=== PATIENT | female | born 1995 | race Caucasian/White ===

== ENCOUNTER 2021-05-03 22:03 | Emergency (ER) | payer OTHER, SELFPAY ==
[2021-05-03 22:03] VITALS: BP 144/77; PULSE 89; RESP 16; TEMP 36.2; O2SAT 100; BMI 23.6
[2021-05-03 22:37] LABS: Absolute Lymphocyte Count 2.77 X10^3/uL (0.83-4.51); Absolute Neutrophil Count 10.5 X10^3/uL (2.0-7.7); Basophil# 0.05 X10^3/uL; Basophil% 0.4 % (0-1); Eosinophil# 0.06 X10^3/uL; Eosinophils% 0.4 % (0-5); Hematocrit 39.3 % (37-47); Hemoglobin 13.1 g/dL (12.0-15.0); Lymphocyte # 2.77 X10^3/ul (0.83-4.51); Lymphocyte % 19.5 % (19-41); Mean Corp Hgb Conc 33.3 g/dL (32-36); Mean Corpuscular Volume 86.9 fL (81-99); Mean Platelet Vol. 9.8 fl (6.2-12.0); Monocyte% 5.6 % (0-10); NRBC Flagged by Analyzer 0 % (0-5); Neutrophil # 10.49 X10^3/uL (2.7-7.7); Neutrophil % 73.7 % (47-70); Platelet Count 323 K/mm3 (150-450); RBC Distribution Width CV 11.4 % (11.6-14.6); RBC Distribution Width SD 36.7 fl (35.1-43.9); Red Blood Count 4.52 M/mm3 (4.2-5.4); White Blood Count 14.2 K/mm3 (4.4-11.0)
[2021-05-03] MEDS: 0.9% Normal Saline 1,000 ML 150 ML IV (22:43)
[2021-05-03] MEDS: Ondansetron 4 MG/2 ML Vial IV (22:43)
[2021-05-03] MEDS: Morphine 4 MG/ML Syringe IV (22:43)
--- NOTE | 2021-05-03 22:44 | EX.ED.DYSGE1 ---
HPI History of Present Illness Chief Complaint: Abd Pain Informant: patient Onset/Context/Timing Onset: Today Context: Gradual Onset Current Severity: Moderate Maximum Severity: Moderate Narrative Narrative: Patient presents with abdominal pain, nausea, and vomiting. Patient states that she has felt bloated all day. Around 6:00 this evening she started evolving pain over her lower abdomen. She did have a bowel movement this morning. No difficulty urinating. She has developed chills along with nausea and vomiting this evening. She denies prior abdominal surgeries. PFSH PFSH Medical History no medical history no medical history Home Medications NK 05/03/21 [History Last Taken Unknown] Allergy/AdvReac Type Severity Reaction Status Date / Time No Known Allergies Allergy Verified 05/03/21 22:05 Social History Smoking Status: Never smoker ROS ROS ED Constitutional Constitutional ED: Reports chills Eyes Eyes: Denies blurry vision or change in vision ENT ENT ED: Denies ear pain Cardiovascular Cardiovascular: Denies chest pain or palpitations Respiratory/Chest Respiratory/Chest: Denies cough or dyspnea Gastrointestinal Gastrointestinal: Reports abdominal pain, nausea and vomiting; Denies diarrhea Genitourinary Genitourinary ED: Denies dysuria or hematuria Integumentary Denies rash Neurologic Neurologic: Denies headache(s) or weakness Allergic/Immunologic Allergic/Immunologic ED: Denies urticaria EXAM Physical Exam Const Vital Signs: 05/03/21 22:03 05/04/21 00:03 Temperature 97.2 F L Temperature Source Temporal Pulse Rate 89 Respiratory Rate 16 18 Blood Pressure 144/77 H Blood Pressure Mean 99 Pulse Ox 100 Oxygen Delivery Method Room Air Positive well nourished and well developed General Appearance ED: well developed HEENT Reports moist mucous membranes Eyes PERRL and EOMs intact bilaterally Neck supple Chest Wall inspection of chest normal and palpation of chest normal Resp normal respiratory effort and clear to auscultation bilaterally Cardio regular rate and regular rhythm GI Palpation: soft and tender other (Moderate tenderness of the lower abdomen. No guarding or rebound. Hypoactive but present bowel sounds are noted.) Extremity normal to inspection Neuro oriented x3 Sensorium / Orientation: alert Psych mental status grossly normal Skin no rashes or lesions noted MDM MDM MDM Narrative Medical decision making narrative: Patient given morphine and Zofran for pain. Lab work, urinalysis, CT abdomen pelvis obtained. Lab Data Attestation: I reviewed the patient's lab results. Labs: Laboratory Results - last 24 hr 05/03/21 05/03/21 05/03/21 22:25 22:25 22:25 WBC 14.2 H RBC 4.52 Hgb 13.1 Hct 39.3 MCV 86.9 MCH 29.0 MCHC 33.3 RDW Std Deviation 36.7 RDW Coeff of Maribeth 11.4 L Plt Count 323 MPV 9.8 Immature Gran % (Auto) 0.400 Neut % (Auto) 73.7 H Lymph % (Auto) 19.5 [place] % (Auto) 5.6 Eos % (Auto) 0.4 Baso % (Auto) 0.4 Absolute Neuts (auto) 10.5 H Absolute Lymphs (auto) 2.77 Nucleated RBC % 0 Sodium 137 Potassium 3.6 Chloride 103 Carbon Dioxide 26.0 Anion Gap 8 BUN 9 Creatinine 0.82 Estim Creat Clear Calc 111.51 Est GFR (MDRD) Af Amer 111 Est GFR (MDRD) Non-Af 91 BUN/Creatinine Ratio 11.0 Glucose 115 H Calcium 8.7 Serum , Qual NEGATIVE Urine Color Urine Clarity Urine pH Ur Specific [place] Urine Protein Urine Glucose (UA) Urine Ketones Urine Occult Blood Urine Nitrite Urine Bilirubin Urine Urobilinogen Ur Leukocyte Esterase Urine RBC Urine WBC Ur Squamous Epith Cells Urine Bacteria Urine Mucus 05/03/21 23:50 WBC RBC Hgb Hct MCV MCH MCHC RDW Std Deviation RDW Coeff of Maribeth Plt Count MPV Immature Gran % (Auto) Neut % (Auto) Lymph % (Auto) [place] % (Auto) Eos % (Auto) Baso % (Auto) Absolute Neuts (auto) Absolute Lymphs (auto) Nucleated RBC % Sodium Potassium Chloride Carbon Dioxide Anion Gap BUN Creatinine Estim Creat Clear Calc Est GFR (MDRD) Af Amer Est GFR (MDRD) Non-Af BUN/Creatinine Ratio Glucose Calcium Serum , Qual Urine Color Yellow Urine Clarity Clear Urine pH 6.5 Ur Specific [place] 1.010 Urine Protein Negative Urine Glucose (UA) Normal Urine Ketones 5 H Urine Occult Blood Negative Urine Nitrite Negative Urine Bilirubin Negative Urine Urobilinogen Normal Ur Leukocyte Esterase 25 H Urine RBC 0 SEEN Urine WBC 0-5 SEEN Ur Squamous Epith Cells 0-5 SEEN Urine Bacteria 1+ Urine Mucus 0 SEEN Radiography Diagnostic Testing: Clinical Impression(s) from Imaging Studies Abdomen/Pelvis CT 05/04/21 22:42 IMPRESSION: 3.7 x 3.5 cm cyst in the left ovary. Complex appearing fluid in the pelvis, in the right pericolic gutter extending to Morison''s pouch.. Consider recent ruptured ovarian cyst and/or inflammatory change. There is a distended appearance of the distal small bowel for which the differential would include the possibility of enteritis possible chronic stasis due to moderate constipation and a large amount of stool within the cecum. No appendicitis. Electronically Signed: Yolette Walters MD at 0:51 EST , Treatment and Re-Evaluation Comments:: White count is elevated at 14.2 but no left shift is noted. Chemistry studies normal. test negative. Urinalysis shows no overt infection. CT scan reveals evidence of cyst in the left ovary with fluid in the pelvis consistent with recently ruptured ovarian cyst. There is also evidence of constipation. There is no evidence of appendicitis. Repeat evaluation patient resting much more comfortably. Test results discussed with her. Supportive care discussed. Patient will follow with her CABINET BUILDER and return instructions to ED are provided. Discharge Plan Triage Chief Complaint: Abd Pain ED Provider: Kait Harper Dx/Rx/DC Orders Clinical Impression: Ovarian cyst, Constipation Instructions: ED Constipation (Adult), ED Ovarian Cyst Prescriptions: No Action NK RF: 0 Primary Care Provider: Care Physician,No Primary Referrals: Care Physician,No Primary [Primary Care Provider] - Activity Restrictions/Additional Instructions: Follow-up with your CABINET BUILDER as discussed. Disposition Disposition: Home, Self Care
[2021-05-03 22:53] LABS: Internal QC Validated? YES +Cl - CLEAR BKGD; Pregnancy, Serum, hCG Quali. NEGATIVE Negative
[2021-05-03 22:54] LABS: Anion Gap 8 (5-15); BUN 9 mg/dL (7-18); Calcium,Total 8.7 mg/dL (8.5-10.1); Chloride 103 mmol/L (98-107); Creatinine, Serum 0.82 mg/dL (0.55-1.02); EST Glomerular Filtration Rate 91 mL/min (>60); Est Glom Filt Rate - Afr Amer 111 mL/min (>60); Estimated Creatinine Clearance 111.51 ml/min; Glucose 115 mg/dL (74-106); Potassium 3.6 mmol/L (3.5-5.1); Sodium Level 137 mmol/L (136-145)
[2021-05-03 23:57] LABS: Mucous, Urine 0 SEEN /hpf (<or=2+); Red Blood Cells-Urine 0 SEEN /hpf (0-5)
[2021-05-04 00:03] VITALS: RESP 18
[2021-05-04 00:16] LABS: Color, Urine Yellow (Yellow); Glucose, Dipstick Normal (Normal); Ketone-Dipstick 5 mg/dl (Negative); Leukocyte Esterase-Dipstick 25 /ul (Negative); Nitrite-Dipstick Negative (Negative); Occult Blood-Urine Negative /ul (Negative); Protein-Dipstick Negative (Negative); Urine Bilirubin Dipstick Negative (Negative); Urine Clarity Clear (Clear); Urine Urobilinogen Normal (Normal); Urine pH 6.5 (5.0 - 8.0)
[2021-05-04 00:27] LABS: Bacteria 1+ /hpf (None Seen); Squamous Epithelial Cells - UA 0-5 SEEN /hpf (5-10); White Blood Cells 0-5 SEEN /hpf (0-5)
[2021-05-04 01:00] VITALS: RESP 16
--- NOTE | 2021-05-04 22:42 | CT_ITS ---
STUDY: CT ABDOMEN AND PELVIS WITH CONTRAST REASON FOR EXAM: Female, 25 years old. Abd pain -- IV PO Contrast RADIATION DOSAGE (If Supplied By Facility): CTDIvol = ( 11.52 ) mGy, DLP = ( 693.25 ) mGycm TECHNIQUE: Transaxial images were obtained from the dome of the diaphragm to the symphysis pubis without oral contrast. Oral and amp; IV Gastrografin and amp; 100mL Isovue-300 was administered. Sagittal and coronal images were reconstructed. Individualized dose optimization techniques were used for this CT. COMPARISON: None. FINDINGS: The visualized lung bases are unremarkable. The visualized portions of the heart are within normal limits. Normal liver. Normal gallbladder and extrahepatic biliary system. Normal spleen. Normal pancreas. Normal bilateral adrenal glands. Normal right kidney. Normal left kidney. Normal visualized stomach. There is abundant stool in the colon. There is a fecal stasis distended appearance of the distal small bowel extending into the right side of the pelvis abutting the right side of the adnexa. There is moderate stool in the colon from the cecum to the rectum. The appendix is visualized and appears normal. The appendix is visualized image #33 coronal views. Normal abdominal aorta. Normal inferior vena cava. Normal retroperitoneum. Normal urinary bladder. There is a cystic structure left ovary measuring 3.7 x 3.5 cm. There is visualized complex appearing free fluid within the pelvis. There is a fairly normal-appearing right ovary. Normal abdominal wall. There are diffuse degenerative changes of the visualized lumbar spine. There is a broad disc bulge L4-L5 with mild neural foramina narrowing mild central stenosis. At L5-S1 there is minimal broad disc bulge. CT/Abdomen/Pelvis WITH Contrast IMPRESSION: 3.7 x 3.5 cm cyst in the left ovary. Complex appearing fluid in the pelvis, in the right pericolic gutter extending to Morison''s pouch.. Consider recent ruptured ovarian cyst and/or inflammatory change. There is a distended appearance of the distal small bowel for which the differential would include the possibility of enteritis possible chronic stasis due to moderate constipation and a large amount of stool within the cecum. No appendicitis. Electronically Signed: Yolette Walters MD at 0:51 EST ,
== END 2021-05-04 01:01 | disposition home or self-care (01) ==
PROVIDERS: Emergency Provider Emergency Medicine; Visit Provider Emergency Medicine
DX: N83.202 Unspecified ovarian cyst, left side (principal); K59.00 Constipation, unspecified
CPT/HCPCS: 74177; 80048; 81001; 84703; 85025; 96374; 96375; 99282; J7030; Q9967; A4216; J2405

== ENCOUNTER → 2022-08-07 | Outpatient (CLI) | payer OTHER, SELFPAY ==
[2022-08-07 16:38] LABS: Absolute Neutrophil Count 6.8 X10^3/uL (2.0-7.7); Basophil# 0.03 X10^3/uL; Basophil% 0.3 % (0-1); Eosinophil# 0.04 X10^3/uL; Eosinophils% 0.4 % (0-5); Hematocrit 40.5 % (37-47); Hemoglobin 13.6 g/dL (12.0-15.0); Lymphocyte % 25.9 % (19-41); Mean Corp Hgb Conc 33.6 g/dL (32-36); Mean Corpuscular Volume 89.2 fL (81-99); Mean Platelet Vol. 9.8 fl (6.2-12.0); Monocyte# 0.54 X10^3/uL; Monocyte% 5.4 % (0-10); NRBC Flagged by Analyzer 0 % (0-5); Neutrophil % 67.7 % (47-70); Platelet Count 331 K/mm3 (150-450); RBC Distribution Width CV 12.1 % (11.6-14.6); RBC Distribution Width SD 39.3 fl (35.1-43.9); Red Blood Count 4.54 M/mm3 (4.2-5.4)
[2022-08-07 17:15] LABS: NATERA MAILED SPECIMEN
[2022-08-07 17:57] LABS: HIV - WCH Non-Reactive (Nonreactive); Hepatitis B Surface Antigen Non-Reactive (Nonreactive); Hepatitis C Antibody Non-Reactive (Nonreactive); Rubella IgG Reactive (Nonreactive); Syphilis Antibodies Non-reactive
[2022-08-10 11:09] LABS: Chlamydia By Nucleic Acid AMP Negative (Negative); Gonococcus By Nucleic Acid AMP Negative (Negative)
== END | disposition home or self-care (01) ==
PROVIDERS: Referring Provider Advanced Practice Midwife; Visit Provider Advanced Practice Midwife
DX: O09.90 Supervision of high risk pregnancy, unspecified, unspecified trimester (principal); Z3A.00 Weeks of gestation of pregnancy not specified
CPT/HCPCS: 36415; 85025; 86703; 86762; 86780; 86803; 86850; 86900; 86901; 87086; 87088; 87340; 87491; 87591

== ENCOUNTER → 2022-09-05 | Outpatient (CLI) | payer OTHER, SELFPAY | END | disposition home or self-care (01) | PROVIDERS: PCP Family Medicine; Referring Provider Registered Nurse; Visit Provider Registered Nurse | DX: O09.90 Supervision of high risk pregnancy, unspecified, unspecified trimester (principal) | CPT/HCPCS: 36415 ==

== ENCOUNTER → 2022-11-30 | Outpatient (CLI) | payer OTHER, SELFPAY ==
[2022-11-30 11:05] LABS: Absolute Lymphocyte Count 1.92 X10^3/uL (0.83-4.51); Absolute Neutrophil Count 5.5 X10^3/uL (2.0-7.7); Basophil# 0.03 X10^3/uL; Basophil% 0.4 % (0-1); Eosinophil# 0.04 X10^3/uL; Eosinophils% 0.5 % (0-5); Hematocrit 34.5 % (37-47); Hemoglobin 11.4 g/dL (12.0-15.0); Lymphocyte # 1.92 X10^3/ul (0.83-4.51); Mean Corpuscular Hgb 29.9 pg (27.0-32.0); Mean Corpuscular Volume 90.6 fL (81-99); Mean Platelet Vol. 10.1 fl (6.2-12.0); Monocyte% 6.3 % (0-10); NRBC Flagged by Analyzer 0 % (0-5); Neutrophil # 5.45 X10^3/uL (2.7-7.7); Neutrophil % 68.2 % (47-70); Platelet Count 285 K/mm3 (150-450); RBC Distribution Width CV 11.9 % (11.6-14.6); RBC Distribution Width SD 38.8 fl (35.1-43.9); Red Blood Count 3.81 M/mm3 (4.2-5.4)
[2022-11-30 11:23] LABS: Glucose Challenge Gest 1H 50g 102 mg/dL (70-140)
[2022-11-30 11:55] LABS: HIV - WCH Non-Reactive (Nonreactive); Syphilis Antibodies Non-reactive
== END | disposition home or self-care (01) ==
LOC: LAB 10:03
PROVIDERS: PCP Family Medicine; Referring Provider Registered Nurse; Visit Provider Registered Nurse
DX: O09.90 Supervision of high risk pregnancy, unspecified, unspecified trimester (principal); Z3A.00 Weeks of gestation of pregnancy not specified; Z13.1 Encounter for screening for diabetes mellitus
CPT/HCPCS: 36415; 82950; 85025; 86703; 86780

== ENCOUNTER 2022-12-12 09:20 | Outpatient (CLI) | payer OTHER, SELFPAY ==
[2022-12-12 09:29] VITALS: BP 123/67; PULSE 62; TEMP 36.7; O2SAT 100; BMI 26.1
[2022-12-12] MEDS: Lactated Ringers 1,000 ML 999 ML IV (09:35)
[2022-12-12] MEDS: Ondansetron 4 MG/2 ML Vial IV (09:53)
[2022-12-12 10:24] LABS: ALB/GLOB Ratio 0.8 RATIO (0.9-2.4); AST(SGOT) 12 U/L (15-37); Alanine Aminotransfer ALT/SGPT 13 U/L (13-56); Albumin, Serum 2.7 g/dL (3.2-5.0); Alkaline Phosphatase 65 U/L (45-117); Anion Gap 7 (5-15); BUN 6 mg/dL (7-18); BUN/Creat Ratio 11.2 RATIO (10-20); Calcium,Total 8.3 mg/dL (8.5-10.1); Chloride 109 mmol/L (98-107); Creatinine, Serum 0.53 mg/dL (0.55-1.02); EST Glomerular Filtration Rate 148 mL/min (>60); Est Glom Filt Rate - Afr Amer 179 mL/min (>60); Estimated Creatinine Clearance 169.58 ml/min; Globulin 3.5 g/dL (2.2-4.2); Glucose 67 mg/dL (74-106); Potassium 3.4 mmol/L (3.5-5.1); Protein, Total 6.2 g/dL (6.4-8.2); Sodium Level 139 mmol/L (136-145)
--- NOTE | 2022-12-12 17:08 | OB.TRI.HP_ITS ---
HPI - General General Date of Admission: 12/12/22 Date of Service: 12/12/22 Chief Complaint: hypotension, nausea/vomiting HPI Narrative ELIZABETH EUBANKS, is a 27 F who presents at 29+3 for hypotension and nausea/vomiting. Maternal Data Information MIKE Calculator Estimated Delivery Date Method Current WG Current Estimate 02/24/23 Ultrasound #1 29w 3d Other Estimates 03/03/23 LMP (Certain) 28w 3d PFSH PFSH Medical History ACL injury tear Ankle fracture, right Home Medications prenat.vits,ronal,ajs-[id number]-[id number] 1 tab PO DAILY 08/07/22 [History Last Taken 12/11/22 21:00] Allergy/AdvReac Type Severity Reaction Status Date / Time doxycycline Allergy Intermediate Abd Verified 12/12/22 09:30 cramps/diarrhea Family History Grandmother Cancer, Onset Age: 57 Surgical History History of ankle surgery S/P ear surgery S/P knee surgery S/P tonsillectomy [place] teeth extracted Social History adopted: No household members: significant other number of children: 0 current occupational status: employed current occupation: [email or web address] current occupational exposures/hazards: No pets and animals: Yes (not doing litterbox) pets and animals: cat(s) and dog(s) history of recent travel: No sexually active: Yes Smoking Status: Never smoker details: social substance use type: does not use caffeine: No seatbelt use: always do you feel safe at home: Yes additional social history: BF- Mellisa History 1 Elective abortions Hx Para 0 Spontaneous abortions Hx # Term Pregnancies Ectopic pregnancies Hx # Pregnancies Multiple births # of living children Visit Details Expected Delivery Route/Plan Labor Preferences- CB/BF classes: ENCOURAGED labor support person: mellisa labor intervention preferences: [] pain management options preferred: [] cut cord/dad catch: [] : wants PP control planned: [] discussed possible routes of delivery and associated risks: [] special requests: [] Plans Covid status: [] Flu vaccine: [] Tdap vaccine: [] Rhogam: NA LARC form signed: [] Problem list reviewed and updated with the most current plan of care details and appropriate orders placed. Relevant counseling for the gestational age provided. Continue routine care and follow up unless otherwise noted in visit notes/problem list details OB Flowsheet Initial Weight: Not Recorded Date -?-?-?-?-?-?-?-?-?-?-?-?- EGA Weight BP Urine Prot -?-?-?-?-?-?-?-?-?-?-?-?- Glucose FHR FuHt Pres Dilation -?-?-?-?-?-?-?-?-?-?-?-?- Effaced St Visit Note 08/07/22 -?-?-?-?-?--?-?-?-?-?-?-?- 11w 2d 164 lb 6 oz 118/74 -?-?-?-?-?-?-?-?-?-?-?-?- 163 -?-?-?-?-?-?-?-?-?-?-?-?- KW- CRL not cons istent with dates. MIKE changed. Scan by AKANKSHA. 09/05/22 -?-?-?-?-?-?-?-?-?-?-?-?- 15w 3d 167 lb 124/70 Negative -?-?-?-?-?-?-?-?-?-?-?-?- Negative 150 -?-?-?-?-?-?-?-?--?-?-?-?- LC- doing well. no concerns. no vb/cramping. anatomy scheduled. afp discussed and accepted. 10/02/22 -?-?-?-?-?-?-?-?-?-?-?-?- 19w 2d 165 lb 4 oz 112/71 Nega tive -?-?-?-?-?-?-?-?-?-?-?-?- Negative 150 -?-?-?-?-?-?-?-?-?-?-?-?- KW- +FM, no lof/ vb/cramping. no concerns today. US at 1400 today 11/02/22 -?-?-?-?-?-?-?-?-?-?-?-?- 23w 5d 173 lb 102/54 Negative -?-?-?-?-?-?-?-?-?-?-?-?- Negative 145 23 -?-?-?-?-?-?-?-?-?-?-?-?- KW-+FM, no vb/cr amping. LARC done KW-+FM, no vb/cramping. LARC done. KW-+FM, no vb/cramping. LARC done. 28 week labs discussed. glucose given 11/30/22 -?-?-?-?-?-?-?-?-?-?-?-?- 27w 5d 176 lb 124/69 Negative -?-?-?-?-?-?-?-?-?-?-?-?- Negative 140 27 -?-?-?-?-?-?-?-?-?-?-?-?- LC- no vb/ctx/lo f. good fm. obtaining labs. tail bone discomfort- to obtain career development manager. LC- no vb/ctx/lof. good fm. obtaining labs. tail bone discomfort- to obtain career development manager. thinking about tdap. 12/12/22 -?--?-?-?-?-?-?-?-?-?-?-?- 29w 3d 177 lb 8 oz 118/70 Nega tive -?-?-?-?-?-?-?-?-?-?-?-?- Negative 140 29 -?-?-?-?-?-?-?-?-?-?-?-?- LC- no vb/ctx/lo f. good fm. pt became extremely dizzy in office with hypotension to 76/30 with vomiting. glucose 87. sent to for IVF, CMP and zofran with BP monitoring. NST FHR Rate Baby A Baseline: 130 Variability:: Moderate Accelerations:: 15 x 15 Decelerations:: None NST Reactive:: Yes FHR Category:: Category I Assessment & Plan (1) Hypotension: COMMENT: maintain fluid, frequent meals, slow position changes. (2) Supervision of high risk , antepartum: COMMENT: PRR , MIEK 02/24/23, CAROLINE Spencer (3) : QUALIFIERS: Weeks of gestation: 29 weeks Qualified Code(s): Z3A.29 - 29 weeks gestation of COMMENT: anatomy nl, NIPT low risk, carrier ordered PLAN: Plan Patient presents for triage evaluation secondary to hypotension/nausea/vomiting. FHT: Moderate variability reactive no decelerations category I tracing [place]: no Contractions Assessment and plan: Reactive NST, reassuring maternal and status patient discharged to home to follow-up in office. See problem list details for additional plan information. Charges/Coding Procedures Urinary/Genital [id number]: [id number] non-stress test Interp
== END 2022-12-12 11:00 | disposition home or self-care (01) ==
LOC: WPOUT 09:25 → WP 09:27
PROVIDERS: PCP Family Medicine; Referring Provider Registered Nurse; Visit Provider Registered Nurse
DX: O99.413 Diseases of the circulatory system complicating pregnancy, third trimester (principal); I95.9 Hypotension, unspecified; Z3A.29 29 weeks gestation of pregnancy
CPT/HCPCS: 96374; 36415; 59025; 59050; 80053; 99221; J7120; G0378; J2405

== ENCOUNTER → 2023-01-31 | Outpatient (CLI) | payer OTHER, SELFPAY | END | disposition home or self-care (01) | PROVIDERS: PCP Family Medicine; Referring Provider Obstetrics & Gynecology; Visit Provider Obstetrics & Gynecology | DX: O09.90 Supervision of high risk pregnancy, unspecified, unspecified trimester (principal); Z3A.00 Weeks of gestation of pregnancy not specified | CPT/HCPCS: 87081 ==

== ENCOUNTER 2023-03-01 20:05 | Inpatient (IN) | payer OTHER, SELFPAY ==
[2023-03-01 19:30] VITALS: BP 124/73; PULSE 70; TEMP 36.8; O2SAT 99
[2023-03-01 19:34] VITALS: BMI 28.2
[2023-03-01 20:05] LABS: ROM Internal Control Test YES-OK TO RESULT pt. (Internal QC)
[2023-03-01 20:06] LABS: ROM Patient Test POSITIVE (Negative); Record Kit Lot#, ROM+ K1409
[2023-03-01 20:58] LABS: Absolute Neutrophil Count 6.9 X10^3/uL (2.0-7.7); Basophil# 0.04 X10^3/uL; Basophil% 0.4 % (0-1); Eosinophil# 0.04 X10^3/uL; Eosinophils% 0.4 % (0-5); Hematocrit 33.4 % (37-47); Hemoglobin 10.4 g/dL (12.0-15.0); Lymphocyte % 24.5 % (19-41); Mean Corp Hgb Conc 31.1 g/dL (32-36); Mean Corpuscular Hgb 24.9 pg (27.0-32.0); Mean Corpuscular Volume 80.1 fL (81-99); Mean Platelet Vol. 10.8 fl (6.2-12.0); Monocyte# 0.66 X10^3/uL; Monocyte% 6.5 % (0-10); NRBC Flagged by Analyzer 0 % (0-5); Neutrophil # 6.89 X10^3/uL (2.7-7.7); Neutrophil % 67.5 % (47-70); Platelet Count 300 K/mm3 (150-450); RBC Distribution Width CV 13.7 % (11.6-14.6); Red Blood Count 4.17 M/mm3 (4.2-5.4); White Blood Count 10.2 K/mm3 (4.4-11.0)
[2023-03-01] MEDS: Lactated Ringers 1,000 ML 50 ML IV (21:00)
[2023-03-01 21:39] LABS: Syphilis Antibodies Non-reactive
[2023-03-01] MEDS: Oxytocin 15 Units/NS 250ml 15 UNITS/250 ML IV.SOLN 2 UNITS IV (22:27)
[2023-03-01 22:29] VITALS: BP 128/65; PULSE 102; TEMP 36.6; O2SAT 99
--- NOTE | 2023-03-01 23:18 | HP.PCM.OB_ITS ---
HPI - General General Date of Admission: 03/01/23 HPI Narrative ELIZABETH EUBANKS, is a 27 F who presents with PROM 2 cm and no regular ctx, clear SROM at 6 pm tonight Maternal Data Information MIKE Calculator Estimated Delivery Date Method Current WG Current Estimate 02/24/23 Ultrasound #1 40w 5d Other Estimates 03/03/23 LMP (Certain) 39w 5d PFSH PFSH Medical History ACL injury tear Ankle fracture, right Home Medications prenat.vits,ronal,qwj-tznr-uphyq 1 tab PO DAILY 08/07/22 [History Last Taken 03/01/23 18:00 1 TAB] famotidine 20 mg tablet (Pepcid) 20 mg PO BID #60 tabs 12/26/22 [Rx Last Taken 02/28/23 16:00 20 mg] Allergy/AdvReac Type Severity Reaction Status Date / Time doxycycline Allergy Intermediate Abd Verified 03/01/23 19:35 cramps/diarrhea Family History Grandmother Cancer, Onset Age: 57 Surgical History History of ankle surgery S/P ear surgery S/P knee surgery S/P tonsillectomy [place] teeth extracted Social History adopted: No household members: significant other number of children: 0 current occupational status: employed current occupation: [employer] current occupational exposures/hazards: No pets and animals: Yes (not doing litterbox) pets and animals: cat(s) and dog(s) history of recent travel: No sexually active: Yes Smoking Status: Never smoker details: social substance use type: does not use caffeine: No seatbelt use: always do you feel safe at home: Yes additional social history: BF- Mellisa History 1 Elective abortions Hx Para 0 Spontaneous abortions Hx # Term Pregnancies Ectopic pregnancies Hx # Pregnancies Multiple births # of living children Visit Details Expected Delivery Route/Plan Labor Preferences- CB/BF classes: ENCOURAGED labor support person: mellisa labor intervention preferences: [] pain management options preferred: limited but open to epidural if needed cut cord/dad catch: yes : wants PP control planned: discussed discussed possible routes of delivery and associated risks: [] special requests: [] Plans Covid status: unvax Flu vaccine: declines Tdap vaccine: given Rhogam: NA LARC form signed: yes movement and labor precautions reviewed. Problem list reviewed and updated with the most current plan of care details and appropriate orders placed. Relevant counseling for the gestational age provided. Continue routine care and follow up unless otherwise noted in visit n otes/problem list details OB Flowsheet Initial Weight: Not Recorded Date -?-?-?-?-?-?-?-?-?-?--?-?- EGA Weight BP Urine Prot -?-?-?-?-?-?-?-?-?-?-?-?- Glucose FHR FuHt Pres Dilation -?-?-?-?-?-?-?-?-?-?-?-?- Effaced St Visit Note 08/07/22 -?-?-?-?-?-?-?-?-?-?-?-?- 11w 2d 164 lb 6 oz 118/74 -?-?-?-?-?-?-?-?-?-?-?-?- 163 -?-?-?-?-?-?-?-?-?-?-?-?- KW- CRL not cons istent with dates. MIKE changed. Scan by AKANKSHA. 09/05/22 -?-?-?-?-?-?-?-?-?-?-?-?- 15w 3d 167 lb 124/70 Negative -?-?-?-?-?-?-?-?-?-?-?-?- Negative 150 -?-?-?-?-?-?-?-?-?-?-?-?- LC- doing well. no concerns. no vb/cramping. anatomy scheduled. afp discussed and accepted. 10/02/22 -?-?-?-?-?-?-?-?-?-?-?-?- 19w 2d 165 lb 4 oz 112/71 Nega tive -?-?-?-?-?-?-?-?-?-?-?-?- Negative 150 -?-?-?-?-?-?-?-?-?-?-?-?- KW- +FM, no lof/ vb/cramping. no concerns today. US at 1400 today 11/02/22 -?-?-?-?-?-?-?-?-?-?-?-?- 23w 5d 173 lb 102/54 Negative -?-?-?-?-?-?-?-?-?-?-?-?- Negative 145 23 -?-?-?-?-?-?-?-?-?-?-?-?- KW-+FM, no vb/cr amping. LARC done KW-+FM, no vb/cramping. LARC done. KW-+FM, no vb/cramping. LARC done. 28 week labs discussed. glucose given 11/30/22 -?-?-?-?-?-?-?-?-?-?-?-?- 27w 5d 176 lb 124/69 Negative -?-?-?-?-?-?-?-?-?-?-?-?- Negative 140 27 -?-?-?-?-?-?-?-?-?-?-?-?- LC- no vb/ctx/lo f. good fm. obtaining labs. tail bone discomfort- to obtain wild animal caretaker. LC- no vb/ctx/lof. good fm. obtaining labs. tail bone discomfort- to obtain wild animal caretaker. thinking about tdap. 12/12/22 -?-?-?-?-?-?-?-?-?-?-?-?- 29w 3d 177 lb 8 oz 118/70 Nega tive -?-?-?-?-?-?-?-?-?-?-?-?- Negative 140 29 -?-?-?-?-?-?-?-?-?-?-?-?- LC- no vb/ctx/lo f. good fm. pt became extremely dizzy in office with hypotension to 76/30 with vomiting. glucose 87. sent to for IVF, CMP and zofran with BP monitoring. 12/26/22 -?-?-?-?-?-?-?-?-?-?-?-?- 31w 3d 178 lb 2 oz 118/70 Nega tive -?-?-?-?-?-?-?-?-?-?-?-?- Negative 148 32 -?-?-?-?-?-?-?-?-?-?-?-?- JV- c/o indigest ion and acid reflux. rx for pepcid sent to pharmacy. no lof, vaginal bleeding, or dec fm. 01/09/23 -?-?-?-?-?-?-?-?-?-?-?-?- 33w 3d 185 lb 4 oz 122/70 Nega tive -?-?-?-?-?-?-?-?-?-?-?-?- Negative 144 33 -?-?-?-?-?-?-?-?-?-?-?-?- MH-No VB, LOF. G ood FM. tdap. 01/23/23 -?-?-?-?-?-?-?-?-?-?-?-?- 35w 3d 185 lb 6 oz 136/78 Nega tive -?-?-?-?-?-?-?-?-?-?-?-?- Negative 140 35 -?-?-?-?-?-?-?-?-?-?-?-?- JV- no lof, vagi nal bleeding, or dec fm. indigestion improved. plan for gbs next visit. 01/31/23 -?-?-?-?-?-?-?-?-?-?-?-?- 36w 4d 187 lb 4 oz 107/70 Nega tive -?-?-?-?-?-?-?-?-?-?-?-?- Negative 140 36 Cephalic 0 -?-?-?-?-?-?-?-?-?-?-?-?- SM- no vb lof go od fm no regular ctx gbs collected 02/07/23 -?-?-?-?-?-?-?-?-?-?-?-?- 37w 4d 191 lb 2 oz 119/69 Nega tive -?-?-?-?-?-?-?-?-?-?-?-?- Negative 140 37 Cephalic 1 -?-?-?-?-?--?-?-?-?-?-?-?- SM- no vb lof go od fm n oregular ctx 02/14/23 -?-?-?-?-?-?-?-?-?-?-?-?- 38w 4d 194 lb 2 oz 121/79 -?-?-?-?-?-?-?-?-?-?-?-?- 120 38 Cephalic 1 -?-?-?-?-?-?-?-?-?-?-?-?- SM- no vb lof go od fm no regular ctx 02/21/23 -?-?-?-?-?-?-?-?-?-?-?-?- 39w 4d 194 lb 8 oz 121/75 Nega tive -?-?-?-?-?-?-?-?-?-?-?-?- Negative 135 39 Cephalic 2 -?-?-?-?-?-?-?-?-?-?-?-?- 60 -2 KW-no vb/l of/regular contractions. good fm. Labor precautions. 02/26/23 -?-?-?-?-?-?-?-?-?-?-?-?- 40w 2d 194 lb 12.8 oz 121/86 N egative -?-?-?-?-?-?-?-?-?-?-?-?- Negative 150 39 Cephalic 2 -?-?-?-?--?-?-?-?-?-?-?-?- 60 -2 JV- membra anat swept today. IOL set up for 41 weeks. no complaints today. labor precautions discussed. NST FHR Rate Baby A Baseline: 140 Variability:: Moderate Accelerations:: 15 x 15 Decelerations:: None NST Reactive:: Yes FHR Category:: Category I Uterine Activity:: irregular ROS Constitutional Constitutional: Reports systems reviewed and no addt'l complaints, except as documented Eyes Eyes: Denies change in vision ENT HEENT: Reports systems reviewed and no addt'l complaints, except as documented; Denies headache(s) Cardiovascular Cardiovascular: Reports systems reviewed and no addt'l complaints, except as documented; Denies chest pain or dyspnea Respiratory/Chest Respiratory/Chest: Reports systems reviewed and no addt'l complaints, except as documented Gastrointestinal Gastrointestinal: Reports systems reviewed and no addt'l complaints, except as documented; Denies abdominal pain Genitourinary Genitourinary: Reports systems reviewed and no addt'l complaints, except as documented, contractions Details: present (irregular) and movement Details: present; Denies dysuria or genital lesions Musculoskeletal Musculoskeletal: Reports systems reviewed and no addt'l complaints, except as documented Neurologic Neurologic: Reports systems reviewed and no addt'l complaints, except as documented Endocrine Endocrinology: Reports systems reviewed and no addt'l complaints, except as documented Vital Signs Vital Signs Vital Signs: 03/01/23 19:30 03/01/23 19:30 03/01/23 19:30 Temperature Temperature Source Temporal Pulse Rate 70 Blood Pressure 124/73 H BP Systolic 124 BP Diastolic 73 Pulse Ox 03/01/23 19:30 03/01/23 19:30 03/01/23 22:29 Temperature 98.2 F Temperature Source Pulse Rate Blood Pressure 128/65 H BP Systolic 128 BP Diastolic 65 Pulse Ox 99 03/01/23 22:29 03/01/23 22:29 03/01/23 22:29 Temperature Temperature Source Temporal Pulse Rate 102 H Blood Pressure BP Systolic BP Diastolic Pulse Ox 99 03/01/23 22:29 Temperature 97.8 F Temperature Source Pulse Rate Blood Pressure BP Systolic BP Diastolic Pulse Ox Weight Weight: 191 lb 6 oz Body Mass Index (BMI) 28.2 Physical Exam Const alert, oriented x3, no apparent distress and healthy appearing HEENT normocephalic and moist oral mucous membranes Head and Scalp: atraumatic Neck full ROM, no lymphadenopathy, supple and thyroid normal General: trachea midline Lymph Lymphatic: no lymphadenopathy noted Chest inspection of chest normal Resp normal respiratory effort Cardio regular rate GI normal to inspection, nondistended, normoactive bowel sounds, soft to palpation and non-tender Inspection: gravid external exam normal Manual OB Exam: estimated gestational size appropriate, presentation cephalic, dilated, effaced and station Extremity normal to inspection General Extremity: Negative for edema Skin no rashes or lesions noted Neuro no focal motor deficits and deep tendon reflexes 2+ bilaterally Motor Exam: strength 5/5 throughout and clonus absent Psych mental status grossly normal Labs Labs Labs: Blood Type A POSITIVE Antibody Screen NEGATIVE Hct 33.4 % (37-47) L Hgb 10.4 g/dL (12.0-15.0) L Pap Smear Negative Syphilis Total Ab Non-reactive Rubella IgG Antibody Reactive (Nonreactive) Hep Bs Antigen Non-Reactive (Nonreactive) Hepatitis C Antibody Non-Reactive (Nonreactive) Chlamydia DNA (MONA) Negative (Negative) N.gonorrhoeae DNA ([facility]) Negative (Negative) HIV 1&2 Antibody Non-Reactive (Nonreactive) Glucose 1 Hr 50 gm 102 mg/dL (70-140) Miscellaneous Test Assessment & Plan (1) Abnormal genetic test during : COMMENT: neg for 13/14 diseases. 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 no further testing for . (2) Supervision of high risk , antepartum: COMMENT: PRR , MIKE 02/24/23, surprise CAROLINE Spencer. (3) : QUALIFIERS: Weeks of gestation: 40 weeks Qualified Code(s): Z3A.40 - 40 weeks gestation of COMMENT: anatomy nl, NIPT low risk, carrier reviewed. afp declined. GBS negative PLAN: Plan Patient presents prom plan pit per protocol. Pain management: plans epidural. GBS neg. Management of any complications: none I have reviewed the [facility] and made any clinically relevant updates.
[2023-03-01 23:51] VITALS: BP 108/50; PULSE 65; TEMP 36.3
[2023-03-02] VITALS (88 sets, daily range): BP systolic 83–139; BP diastolic 42–105; PULSE 63–127; RESP 16; TEMP 36.4–38.2; O2SAT 82–100
[2023-03-02] MEDS: LACTATED RINGERS 500 ML 999 ML IV ×2 (00:41→05:30)
[2023-03-02] MEDS: fentaNYL-bupivacaine (epidural) 100 ML BAG EPIDURAL ×3 (01:40→11:46)
[2023-03-02] MEDS: Lactated Ringers 1,000 ML 200 ML IV ×3 (04:32→12:52)
[2023-03-02] MEDS: Amnioinfusion- 0.9% NS 1,000 ML IV.SOLN. INTRA-UTER (05:27)
[2023-03-02] MEDS: ePHEDrine Sulfate 50 MG/ML Ampul 10 MG IV (05:31)
[2023-03-02] MEDS: Ondansetron 4 MG/2 ML Vial IV ×2 (05:31→15:17)
[2023-03-02] MEDS: ePHEDrine Sulfate 50 MG/ML Ampul 10 MG IM (05:32)
--- NOTE | 2023-03-02 10:29 | PCM.PN.BLA ---
Progress Note recurrent decels - resolved with position change current tracing: FHT: 140 Moderate variability reactive intermittent late decelerations category II tracing [place]: q 2-3 Contractions reviewed tracing abnormalities since last note: see above A/P: continue pit per protocol, position changes, amnioinfusion
--- NOTE | 2023-03-02 14:19 | OP.PCM_ITS ---
Assessment & Plan (1) PROM (premature rupture of membranes): (2) Abnormal genetic test during : COMMENT: neg for 13/14 diseases. 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 no further testing for . (3) Supervision of high risk , antepartum: COMMENT: PRR , MIKE 02/24/23, surprise CAROLINE Spencer. (4) : QUALIFIERS: Weeks of gestation: 40 weeks Qualified Code(s): Z3A.40 - 40 weeks gestation of COMMENT: anatomy nl, NIPT low risk, carrier reviewed. afp declined. GBS negative (5) Vaginal delivery: COMMENT: SM 40 PROM Maternal Data Information MIKE Calculator Estimated Delivery Date Method Current WG Current Estimate 02/24/23 Ultrasound #1 40w 6d Other Estimates 03/03/23 LMP (Certain) 39w 6d Vaginal Delivery Operative Information Date of Procedure: 03/02/23 Pre-Operative Diagnosis: see a/p diagnoses Post-Operative Diagnosis: same Surgery / Procedure Performed: Spontaneous Vaginal Delivery Type of Anesthesia: Epidural Special Medications: none Estimated Blood Loss: 400 Fluids Replaced: crystalloid Findings Description of Procedure: Patient began pushing and delivered the head in the PRICE presentation. The head was delivered atraumatically and a loose nuchal cord ?1 was identified and the delivered through without complication. The anterior and posterior shoulders delivered without complication followed by the rest of the infant and the was placed on the maternal abdomen. Delayed cord clamping was employed for approximately 60 seconds. Cord was clamped and cut and gentle traction was applied to the cord and the placenta delivered spontaneously immediately following it was noted to be intact with three-vessel cord. The perineum and vagina were inspected and noted to have a first degree perineal laceration which was repaired in the usual fashion with 3-0 vicryl rapide with minor atony treated with massage, pitocin, and methergine. EBL was 400. Patient and tolerated delivery well. Amniotic Fluid Description: Clear Placental Delivery Description: Spontaneous Placenta Disposition: [facility] Cord Vessel Description: 3 Vessels Cord Entanglement: None Delayed Cord Clamping: Yes Post Vaginal Delivery Medications Given After Delivery: IV Pitocin, IM Pitocin and IM Methergin Episiotomy Description: None Complication Complications: None Procedures Urinary/Genital [id number]: [id number] Vaginal Delivery [facility]
--- NOTE | 2023-03-02 14:22 | DCINST_ITS ---
Discharge Instructions Diet Discharge Diet: No restrictions Activity Discharge Activity: Return to Normal Activity, May Not Drive (while taking narcotic pain medications.) and May Shower May resume sexual activity in: 4-6 weeks Dressing / Incision Call your doctor if your incision/area has: Continuous Slow Oozing, Sudden Increased Bleeding, Increased Pain/ Swelling, Increased Redness and Foul Smelling Discharge Follow Up Care Please Follow Up With: Patricia Toth MD When: Call [phone] to make an appointment with your doctor in 6 weeks. If you had elevated blood pressure or 4th degree laceration, you will need to be seen in 2 weeks. Test Results: Test results from this visit will be discussed in further detail at your follow- up appointment, if applicable. Discharge Plan Admission Admit Date/Time: 03/01/23 20:05 Attending Provider: Patricia Toth Primary Care Provider: Maru Herrera Discharge Orders/Prescriptions Prescriptions: No Action prenat.vits,ronal,[id number]-yzyl-[id number] Tablet 1 tab PO DAILY famotidine [Pepcid] 20 mg tablet 20 mg PO BID Qty: 60 5RF Referrals / Follow Up: Maru Herrera MD [Primary Care Provider] - Disposition Disposition (needs filled in before D/C Order can be placed): Home, Self Care
[2023-03-02] MEDS: Methylergonovine 0.2 MG/ML Ampul IM (15:01)
[2023-03-02] MEDS: Oxytocin 15 Units/NS 250ml 15 UNITS/250 ML IV.SOLN 83 UNITS IV (15:15)
[2023-03-02] MEDS: Acetaminophen 500 MG Tablet 1000 MG PO (17:30)
[2023-03-02] MEDS: Ampicillin 2 GM in 0.9% Normal Saline (100mL MB+) 100 ML IV (18:00)
[2023-03-02] MEDS: Gentamicin IV 330 MG in Dextrose 5%-Water (50mL Bag) 50 ML 100 MG IVPB (18:34)
[2023-03-02] MEDS: 0.9% Saline Lock 10 ML Syringe IV (18:34)
[2023-03-02] MEDS: Naproxen 500 MG Tablet PO (19:57)
[2023-03-03 00:54] VITALS: BP 113/52; PULSE 95; RESP 16; TEMP 36.6
[2023-03-03] MEDS: Acetaminophen 500 MG Tablet 1000 MG PO ×2 (01:01→10:28)
[2023-03-03 05:25] VITALS: BP 121/73; PULSE 91; RESP 16; TEMP 36.6
[2023-03-03 05:41] LABS: Absolute Neutrophil Count 20.5 X10^3/uL (2.0-7.7); Basophil% 0.4 % (0-1); Eosinophil# 0.02 X10^3/uL; Eosinophils% 0.1 % (0-5); Hematocrit 28.4 % (37-47); Hemoglobin 8.9 g/dL (12.0-15.0); Lymphocyte % 5.3 % (19-41); Mean Corp Hgb Conc 31.3 g/dL (32-36); Mean Corpuscular Hgb 25.1 pg (27.0-32.0); Mean Corpuscular Volume 80.2 fL (81-99); Mean Platelet Vol. 10.4 fl (6.2-12.0); Monocyte# 0.65 X10^3/uL; Monocyte% 2.9 % (0-10); NRBC Flagged by Analyzer 0 % (0-5); Neutrophil # 20.49 X10^3/uL (2.7-7.7); Neutrophil % 90.4 % (47-70); POSITIVE DIFFERENTIAL YES; Platelet Count 181 K/mm3 (150-450); RBC Distribution Width SD 41.1 fl (35.1-43.9); Red Blood Count 3.54 M/mm3 (4.2-5.4); White Blood Count 22.7 K/mm3 (4.4-11.0)
[2023-03-03 05:54] LABS: Differential Indicated SCAN CRITERIA MET
[2023-03-03 06:14] LABS: Differential Comment SCANNED
--- NOTE | 2023-03-03 07:06 | PCM.PN.OB ---
Subjective Subjective Patient doing well without complaints. Tolerating PO. Ambulating and voiding without difficulty. feeding well. Denies chest pain, shortness of breath, calf pain/swelling, fevers, chills, lightheadedness. Objective Data Objective Data Vital Signs: Vital Signs Temp Pulse Resp BP Pulse Ox O2 Del Method 97.8 F 91 16 121/73 H 97 Room Air 03/03/23 05:25 03/03/23 05:25 03/03/23 05:25 03/03/23 05:25 03/02/23 19:41 03/03/23 05:25 Oxygen Delivery Method Room Air Weight: 191 lb 6 oz Body Mass Index (BMI) 28.2 Intake & Output: Intake and Output for Last 24 Hours 03/01/23 03/02/23 03/03/23 23:59 23:59 23:59 Intake Total 4.20 / 4.20 4234.61 / 4234.61 Output Total 2400 / 2400 600 / 600 Balance 4.20 / 4.20 1834.61 / 1834.61 -600 / -600 Lab / Micro Data 03/03/23 05:30 Labs: Laboratory Results - last 24 hr 03/03/23 05:30: WBC 22.7 H, RBC 3.54 L, Hgb 8.9 L, Hct 28.4 L, MCV 80.2 L, MCH 25.1 L, MCHC 31.3 L, RDW Std Deviation 41.1, RDW Coeff of Mariebth 14.0, Plt Count 181, MPV 10.4, Immature Gran % (Auto) 0.900, Neut % (Auto) 90.4 H, Lymph % (Auto) 5.3 L, [place] % (Auto) 2.9, Eos % (Auto) 0.1, Baso % (Auto) 0.4, Absolute Neuts (auto) 20.5 H, Absolute Lymphs (auto) 1.20, Nucleated RBC % 0, Differential Comment SCANNED ROS Constitutional Constitutional: Reports systems reviewed and no addt'l complaints, except as documented Cardiovascular Cardiovascular: Reports systems reviewed and no addt'l complaints, except as documented Respiratory/Chest Respiratory/Chest: Reports systems reviewed and no addt'l complaints, except as documented Gastrointestinal Gastrointestinal: Reports systems reviewed and no addt'l complaints, except as documented Physical Exam Const alert, oriented x3 and no apparent distress HEENT Head and Scalp: atraumatic Resp normal respiratory effort GI soft to palpation and non-tender Bimanual Exam - Vag & Uterus: uterus non-tender Uterus Palpation: uterus fundus firm (below Umbilicus) Assessment & Plan (1) Vaginal delivery: COMMENT: SM 40 PROM PLAN: Plan s/p PPD #1 1. routine post delivery care 2. breast feeding- support given 3. rh positive 4. rubella immune
[2023-03-03 08:30] VITALS: BP 106/60; PULSE 99; RESP 16; TEMP 36.6
[2023-03-03] MEDS: Naproxen 500 MG Tablet PO ×2 (08:32→17:24)
[2023-03-03 12:27] VITALS: BP 94/48; PULSE 75; RESP 14; TEMP 36.6
[2023-03-03 17:35] VITALS: BP 101/57; PULSE 96; RESP 16; TEMP 37.1
[2023-03-03 20:25] VITALS: BP 102/46; PULSE 95; RESP 16; TEMP 36.3; O2SAT 99
[2023-03-04] MEDS: Acetaminophen 500 MG Tablet 1000 MG PO (00:42)
[2023-03-04 01:20] VITALS: BP 124/50; PULSE 83; RESP 14; TEMP 36.2; O2SAT 96
[2023-03-04 07:38] VITALS: BP 108/62; PULSE 82; RESP 14; TEMP 36.6; O2SAT 97
--- NOTE | 2023-03-04 09:13 | PCM.PN.OB ---
Subjective Subjective Patient doing well without complaints. Tolerating PO. Ambulating and voiding without difficulty. Feeding well. Denies chest pain, shortness of breath, calf pain/swelling, fevers, chills, lightheadedness. Objective Data Objective Data Vital Signs: Vital Signs Temp Pulse Resp BP Pulse Ox O2 Del Method 97.8 F 82 14 108/62 97 Room Air 03/04/23 07:38 03/04/23 07:38 03/04/23 07:38 03/04/23 07:38 03/04/23 07:38 03/04/23 07:38 Oxygen Delivery Method Room Air Weight: 191 lb 6 oz Body Mass Index (BMI) 28.2 Intake & Output: Intake and Output for Last 24 Hours 03/02/23 03/03/23 03/04/23 23:59 23:59 23:59 Intake Total 4234.61 / 4234.61 Output Total 2400 / 2400 600 / 600 Balance 1834.61 / 1834.61 -600 / -600 Lab / Micro Data 03/03/23 05:30 Physical Exam Const alert, oriented x3 and no apparent distress HEENT Head and Scalp: atraumatic Resp normal respiratory effort GI soft to palpation and non-tender Bimanual Exam - Vag & Uterus: uterus non-tender Uterus Palpation: uterus fundus firm (below Umbilicus) Assessment & Plan (1) examination following vaginal delivery: (2) Anemia: COMMENT: continue po iron x30 days PLAN: Plan s/p PPD # 2 1. routine post delivery care 2. breast feeding- support given 3. rh positive 4. rubella immune 5. d/c home today
[2023-03-04 11:14] VITALS: RESP 16
== END 2023-03-04 11:14 | disposition home or self-care (01) | DRG 807 ==
LOC: WPOUT 20:08 → WP 20:08
PROVIDERS: Admitting Provider Obstetrics & Gynecology; PCP Family Medicine; Visit Provider Obstetrics & Gynecology
DX: O76 Abnormality in fetal heart rate and rhythm complicating labor and delivery (principal); Z37.0 Single live birth; K21.9 Gastro-esophageal reflux disease without esophagitis; O42.02 Full-term premature rupture of membranes, onset of labor within 24 hours of rupture; O99.62 Diseases of the digestive system complicating childbirth; O35.19X0 Maternal care for (suspected) chromosomal abnormality in fetus, other chromosomal abnormality, not applicable or unspecified; O69.81X0 Labor and delivery complicated by cord around neck, without compression, not applicable or unspecified; O70.0 First degree perineal laceration during delivery; O99.02 Anemia complicating childbirth; Z3A.40 40 weeks gestation of pregnancy; Z79.899 Other long term (current) drug therapy
CPT/HCPCS: 59025; 59050; 84112; 85025; 86780; 86850; 86900; 86901; 99221; J7030; J7120; A4216; G0378; J2405

== ENCOUNTER → 2023-03-15 | Outpatient (CLI) | payer OTHER, SELFPAY ==
--- NOTE | 2023-03-15 10:50 | VDLE_ITS ---
Reason For Study: LLE PAIN RIGHT LEFT CFV is compressible, spontaneous, phasic, GSV is normal. competent and demonstrates normal CFV is compressible, spontaneous, phasic, augmentation. competent, and demonstrates normal Procedure augmentation. This is a venous duplex using B-mode, color FV is compressible, spontaneous, phasic, flow and spectral Doppler. competent and demonstrates normal Exam performed in department. augmentation. A preliminary report was called and/or faxed POP V is compressible, spontaneous, phasic, to Chyna @ [phone] @ 11:10 am. competent and demonstrates normal augmentation. T/P Trunk is compressible. PTV is compressible. LT PerV is compressible. Thrombus filled varicosities noted in left medial calf (area of pain & lump). VL/Venous Duplex US, Unilateral Interpretation Summary There is no evidence of left lower extremity deep vein thrombosis. Left great s aphenous vein appears patent and compressible segmentally. Superficial thrombophlebitis varicosities left medial calf. Normal flow patterns right common femoral vein Ordering Physician: Kait French Referring Physician: Maru Herrera Performed By: Chastity Branch, YAN, RVT
== END | disposition home or self-care (01) ==
LOC: CVS 10:49
PROVIDERS: PCP Family Medicine; Referring Provider Obstetrics & Gynecology; Visit Provider Obstetrics & Gynecology
DX: M79.662 Pain in left lower leg (principal)
CPT/HCPCS: 93971

== ENCOUNTER → 2024-04-22 | Outpatient (CLI) | payer BC, SELFPAY ==
--- NOTE | 2024-04-22 16:22 | US_ITS ---
EXAM: US PELVIS TRANSABDOMINAL AND TRANSVAGINAL, COMPLETE CLINICAL INDICATION: dyspareunia TECHNIQUE: Transabdominal and transvaginal pelvic ultrasound was performed with grayscale and color Doppler imaging. Transvaginal imaging was used for better evaluation of the endometrium and adnexa. COMPARISON: Abdomen and pelvis CT May 04, 2021, there was mild fluid in Morison''s pouch, fluid in the right lower quadrant, intrapelvic fluid, and prominent dominant cyst in the left adnexa FINDINGS: UTERUS/CERVIX: Unremarkable. 8.2 cm x 5.4 cm x 4 cm. Anteverted. There is no uterine mass. Normal 1.3 cm echogenic and homogeneous fundal endometrial stripe thickness. RIGHT OVARY: 4.2 cm x 2.4 cm x 3.7 cm with Non-enlarged, normal echogenicity. Blood flow is present in the right ovary. LEFT OVARY: Unremarkable with the exception fairly simple anechoic dominant follicle of 1.3 cm x 1.5 cm x 1.6 cm internal diameter. 3.5 cm x 1.9 cm x 2.3 cm with multiple small follicles. Non-enlarged, normal echogenicity. Blood flow is present in the left ovary. FREE FLUID: Slight fluid superior to the uterus. BLADDER: Unremarkable as visualized. Well distended, 13.5 cm x 6.2 cm x 9.9 cm, calculated volume 435 cc. Wall is normal thickness for degree of distention. US/Pelvic w/ Transvaginal IMPRESSION: Dominant 1.6 cm left ovarian simple follicle. Slight free fluid. Electronically Signed: Dania Stapleton MD at 2:34 EST ,
== END | disposition home or self-care (01) ==
LOC: US 16:20
PROVIDERS: PCP Family Medicine; Referring Provider Obstetrics & Gynecology; Visit Provider Obstetrics & Gynecology
DX: R10.2 Pelvic and perineal pain (principal)
CPT/HCPCS: 76830; 76856

== ENCOUNTER → 2024-07-09 | Outpatient (CLI) | payer BC, SELFPAY ==
--- NOTE | 2024-07-09 15:05 | CT_ITS ---
EXAM: CT Maxillofacial Sinuses Without Intravenous Contrast CLINICAL INDICATION: CHRONIC SINUSITIS TECHNIQUE: Computed tomography images of the maxillofacial sinuses without intravenous contrast. This CT exam was performed using one or more of the following dose reduction techniques: automated exposure control, adjustment of the mA and/or kV according to patient size, and/or use of iterative reconstruction technique. COMPARISON: No relevant prior studies available. FINDINGS: MAXILLARY SINUSES: Unremarkable. No air-fluid levels. SPHENOID SINUSES: Unremarkable. No air-fluid levels. FRONTAL SINUSES: Unremarkable. No air-fluid levels. ETHMOID AIR CELLS: Unremarkable. No air-fluid levels. NASAL CAVITY/SEPTUM: No acute findings. BONES/JOINTS: No acute fracture. SOFT TISSUES: Unremarkable. CT/Sinus/Facial Bone IMPRESSION: Normal sinus CT. Reading [facility]
== END | disposition home or self-care (01) ==
LOC: CT 15:02
PROVIDERS: PCP Nurse Practitioner Family; Referring Provider Nurse Practitioner Family; Visit Provider Nurse Practitioner Family
DX: J32.9 Chronic sinusitis, unspecified (principal)
CPT/HCPCS: 70486

== ENCOUNTER → 2024-08-15 | Outpatient (CLI) | payer BC, SELFPAY | END | disposition home or self-care (01) | LOC: LABSPEC 09:21 | PROVIDERS: PCP Nurse Practitioner Family; Referring Provider Otolaryngology Otolaryngology/Facial Plastic Surgery; Visit Provider Otolaryngology Otolaryngology/Facial Plastic Surgery | DX: J32.9 Chronic sinusitis, unspecified (principal) | CPT/HCPCS: 87070; 87205 ==